=== PATIENT | female | born 1960 | race Caucasian/White ===

== ENCOUNTER 2017-11-28 17:49 | Emergency (ER) | payer MEDICARE, MEDICAID ==
[~2017-11-28] VITALS: Ht 165.1 cm; Wt 74.8 kg
[2017-11-28 19:49] VITALS: BP 127/91
== END 2017-11-28 20:57 | disposition left against medical advice (07) ==
LOC: ER 17:49
DX: R22.0 Localized swelling, mass and lump, head (principal); Z53.21 Procedure and treatment not carried out due to patient leaving prior to being seen by health care provider

== ENCOUNTER 2024-07-29 16:39 | Emergency (ER) | payer OTHER, MEDICAID ==
[~2024-07-29] VITALS: Ht 165.1 cm; Wt 73.0 kg
--- NOTE | 2024-07-29 17:42 | DVH ---
EXAM: XY CERVICAL SPINE 3V INDICATION: Cervical radiculopathy COMPARISON: None TECHNIQUE: 3 views of the cervical spine were obtained. Findings: There is no evidence of an acute fracture, spondylolysis, or spondylolisthesis. Moderate spondylosis. The vertebral body heights and disc spaces are well-maintained. No blastic or lytic lesions are appreciated. No radiopaque foreign bodies. No superficial soft tissue abnormalities. Impression: 1. No acute osseous abnormality. 2. Moderate degenerative changes of the cervical spine.
[2024-07-29] MEDS: ONDANSETRON HCL 4 MG/2 ML VIAL IM ONE (17:54)
[2024-07-29 18:00] VITALS: BP 132/91; PULSE 98; RESP 16; TEMP 98; O2SAT 99
[2024-07-29] MEDS ORDERED: IBUP-1455 PO (18:19)
[2024-07-29] MEDS ORDERED: ZOFR4T PO (18:19)
[2024-07-29] MEDS ORDERED: ACE3T PO (18:19)
--- NOTE | 2024-07-29 18:20 | ED.PDOC ---
History of Present Illness HPI Comments This patient is a 63-year-old female who arrives the ED today with complaints of nausea and vomiting for the past few days. Patient denies any fever. Additionally, patient complains of neck pain that radiates towards her right ear. Patient has been seen by her primary care and has been dispensed multiple rounds of ear drop antibiotics without benefit. Additionally, patient states that she has some pain that goes into her right shoulder. Patient was mildly hypertensive and mildly tachycardic at arrival. Patient complains of some abdominal pain, but states that she believes it is from vomiting. Chief Complaint: Nausea/Vomiting Time Seen by MD: 16:44 Reviewed Notes: Nurses Notes Allergies: Coded Allergies: NO KNOWN ALLERGIES (Unverified , 11/28/17) Information Source: Patient, Friend Mode of Arrival: Ambulatory Severity: Moderate Timing: Weeks Duration: Since onset Prehospital treatment: Treatment Past Medical History PAST MEDICAL HISTORY: Denies Surgical History: Denies all surgeries VAMP STITCHER History: No Pertinent VAMP STITCHER History Family History Family History: Reviewed,noncontributory to illness, No family hx of Cancer, No family hx of DM, No family hx of Heart rohit, No family hx of HTN, No family hx ofKidney rohit, No family hx of Liver rohit, No family hx of Lung rohit, No family hx of Stroke Social History Smoker: Non-Smoker Alcohol: Denies ETOH Use Drugs: Denies Drug Use Lives In: Home Constitutional: denies: chills, diaphoresis, fatigue, fever, malaise, sweats, weakness, others EENTM: reports: ear pain; denies: blurred vision, double vision, ear bleeding, ear discharge, ear drainage, ear ringing, eye pain, eye redness, hearing loss, mouth pain, mouth swelling, nasal discharge, nose bleeding, nose congestion, nose pain, photophobia, tearing, throat pain, throat swelling, voice changes, others Respiratory: denies: cough, hemoptysis, orthopnea, SOB at rest, shortness of breath, SOB with excertion, stridor, wheezing, others Cardiovascular: denies: chest pain, dizzy spells, diaphoresis, Dyspnea on exertion, edema, irregular heart beat, left arm pain, lightheadedness, palpitations, PND, syncope, others Gastrointestinal: reports: abdominal pain; denies: abdomen distended, blood streaked bowels, constipated, diarrhea, dysphagia, difficulty swallowing, hem atemesis, melena, nausea, poor appetite, poor fluid intake, rectal bleeding, rectal pain, vomiting, others Genitourinary: denies: abnormal vagina bleeding, burning, dyspareunia, dysuria, flank pain, frequency, hematuria, incontinence, pain, , vagina discharge, urgency, others Neurological: denies: dizziness, fainting, headache, left sided numbness, left sided weakness, numbness, paresthesia, pre-existing deficit, right sided numbness, right sided weakness, seizure, speech problems, tingling, tremors, weakness, others Musculoskeletal: reports: neck pain, others (Right shoulder pain); denies: back pain, gout, joint pain, joint swelling, muscle pain, muscle stiffness Integumetry: denies: bruises, change in color, change in hair/nails, dryness, laceration, lesions, lumps, rash, wounds, others Allergic/Immunocompromised: denies: Difficulty Healing, Frequent Infections, Hives, Itching, others Hematologic/Lymphatic: denies: anemia, blood clots, easy bleeding, easy bruising, swollen glands, others Endocrine: denies: excessive hunger, excessive sweating, excessive thirst, excessive urination, flushing, intolerance to cold, intolerance to heat, unexplained weight gain, unexplained weight loss, others Psychiatric: denies: anxiety, bipolar disorder, depression, hopeless, panic disorder, schizophrenia, sleepless, suicidal, others Physical Exam General Appearance: Moderate Distress ([id number] distress due to neck pain and ear pain concerns.), Normal HEENT: Normal ENT Inspection, Pharynx Normal, TMs Normal, Other (Right ear was unremarkable evaluation. No canal erythema or edema. TM was pearly without retractions or bulging.) Neck: Other (Diffuse bilateral posterior tenderness to palpation throughout with [id number] hypertonicity appreciated. No step-offs noted.) Respiratory: Chest Non-Tender, Lungs Clear, No Accessory Muscle Use, No Respiratory Distress, Normal Breath Sounds Cardiovascular: No Edema, No JVD, No Murmur, No Gallop, Normal Peripheral Pulses, Regular Rate/Rhythm Breast Exam: Deferred Gastrointestinal: No Organomegaly, Non Tender, No Pulsatile Mass, Normal Bowel Sounds, Soft Genitalia: Deferred Pelvic: Deferred Rectal: Deferred Extremities: Other (Right shoulder was unremarkable on exam. No signs of trauma. No deformities. Mild reduced range of motion.) Neurologic: Alert, No Motor Deficits, Normal Affect, Normal Mood, No Sensory Deficits Cerebellar Function: Normal Reflexes: Normal Skin: Dry, Normal Color, Warm Lymphatic: No Adenopathy Was a procedure done? Was a procedure done?: No Differential Dx Considerations may include: Degenerative disc disease of the cervical spine, cervical radiculopathy, gastroenteritis X-Ray, Labs, Meds, VS Vital Signs Date Time Temp Pulse Resp B/P (MAP) Pulse Ox O2 Delivery O2 Flow Rate FiO2 07/29/24 18:00 98 16 99 Room Air 07/29/24 18:00 98.0 99 16 132/91 (105) 100 98.0 07/29/24 17:12 97.6 104 15 137/96 (110) 99 Current Medications Medications (Trade) Dose Ordered Sig/Kathy Route Start Time Stop Time Status Last Admin Ondansetron HCl (Zofran) 4 mg ONCE ONCE IM 07/29/24 16:45 07/29/24 16:46 DC 07/29/24 17:54 X-Ray, Labs, Meds, VS Comment All studies performed the ED were evaluated by me personally. Imaging studies confirmed some cervical degenerative disc disease that I believe is responsible for her ear in neck and shoulder pain. Patient should follow up with the primary care provider for an orthopedic referral and evaluation. Additionally, the patient may be suffering from a viral gastroenteritis. Patient had good relief of symptoms status post medication dispensed. Advised patient utilize medication as needed as well as good hydration and healthy nutrition throughout illness event. Time of 1ST Reevaluation: 18:17 Reevaluation 1ST: Improved Consultation: PCP, Other (Orthopedist) Patient Education/Counseling: Diagnosis, Treatment Family Education/Counseling: Diagnosis, Treatment Departure 1 Departure Time of Disposition: 18:17 Impression: Primary Impression: Degenerative joint disease of cervical spine Additional Impressions: Cervical radiculopathy Viral gastroenteritis Disposition: HOME / SELF CARE / HOMELESS Condition: Stable Additional Instructions: Advised patient utilize medication as needed for symptomatic relief in additionally, patient should follow up with primary care provider for orthopedic referral and evaluation to deal with her cervical spine concerns. e-Prescriptions Ondansetron Odt 4MG Tab (ZOFRAN PO) 4 Mg Tb 4 MG PO Q6HP PRN, #15 TAB ODT TAB-DISSOLVE IN MOUTH, THEN SWALLOW Prov: HENRY NUÑEZ PAC 07/29/24 Acetaminophen W/ Codeine (Tylenol W/Cod #3) 1 Tab Tb 1 TAB PO Q8HP PRN, #15 TAB Prov: HENRY NUÑEZ PAC 07/29/24 Ibuprofen Micronized (Ibuprofen) 800 Mg Tab 800 MG PO Q8HP PRN, #20 TAB Prov: HENRY NUÑEZ PAC 07/29/24 Discharged With: Self, Friend Critical Care Note Critical Care Time?: No Stability Stability form required: No Heart Score Heart Score: Heart Score Response (Comments) Value History N/A 0 EKG N/A 0 Age N/A 0 Risk Factors N/A 0 Troponin N/A 0 Total 0 HENRY NUÑEZ PAC Jul 29, 2024 18:20
== END 2024-07-29 18:50 | disposition home or self-care (01) ==
LOC: ER 16:39
DX: M47.22 Other spondylosis with radiculopathy, cervical region (principal); A08.4 Viral intestinal infection, unspecified; I10 Essential (primary) hypertension
CPT/HCPCS: 72040; 96372; 99283; J2405